=== PATIENT | female | born 1945 | race Caucasian/White ===

== ENCOUNTER 2022-11-09 14:08 | Outpatient (CLI) | payer MEDICARE | END 2022-11-09 14:09 | disposition home or self-care (01) | LOC: CSHMAMMO 14:08 | PROVIDERS: ATTEND Family Medicine | DX: Z13.820 Encounter for screening for osteoporosis (principal); M81.0 Age-related osteoporosis without current pathological fracture; M85.88 Other specified disorders of bone density and structure, other site; Z78.0 Asymptomatic menopausal state | CPT/HCPCS: 77080 ==

== ENCOUNTER 2023-01-14 17:02 | Emergency (ER) | payer MEDICARE | END 2023-01-14 18:08 | disposition home or self-care (01) | LOC: CSHERS 17:02 | DX: K13.0 Diseases of lips (principal); I10 Essential (primary) hypertension; F17.210 Nicotine dependence, cigarettes, uncomplicated | CPT/HCPCS: 99283 ==

== ENCOUNTER 2023-07-31 16:46 | Emergency (ER) | payer MEDICARE | END 2023-07-31 18:28 | disposition home or self-care (01) | LOC: CSHERS 16:46 | DX: M25.571 Pain in right ankle and joints of right foot (principal); M25.561 Pain in right knee; M25.511 Pain in right shoulder; I10 Essential (primary) hypertension; F17.210 Nicotine dependence, cigarettes, uncomplicated; W01.0XXA Fall on same level from slipping, tripping and stumbling without subsequent striking against object, initial encounter ==